=== PATIENT | female | born 1960 | race Caucasian/White ===

== ENCOUNTER 2021-01-15 21:29 | Emergency (ER) | payer MEDICARE, MEDICAID ==
--- NOTE | 2021-01-15 21:42 | ED Physician Documentation ---
PD HPI LOWER EXT INJURY - Stated complaint Stated Complaint: L LEG SWOLLEN - History obtained from History obtained from: Patient - History of Present Illness PD HPI LOW EXT INJURY LOCATION: Left, Lower leg, Foot, Toe Type of injury: No: Fall, Twist Where injury occurred: Home Timing - onset: How many days ago (she has had some pain and swelling in lower leg/foot/toes with pain in them with walking/activity for couple of months. Consistent pain and also discoloration of great/2nd toes and around the heel for 2 days. No noted injury.) Timing - duration: Days (2) Timing - details: Abrupt onset, Still present Worsened by: Moving, Palpating Associated symptoms: Weakness (for movement of left foot and toes for the past 2 days.), Numbness, Tingling, Swelling, Discolored (around heel, great toe and 2nd toe.) Similar symptoms before: Has not had sx before Recently seen: Not recently seen Review of Systems Constitutional: denies: Fever, Chills Nose: denies: Rhinorrhea / runny nose, Congestion Throat: denies: Sore throat Cardiac: denies: Chest pain / pressure, Palpitations Respiratory: denies: Dyspnea, Cough GI: denies: Nausea, Vomiting, Diarrhea : denies: Dysuria Skin: denies: Rash, Lesions Musculoskeletal: denies: Neck pain, Back pain Neurologic: reports: Focal weakness (left foot feels weak and hurts with ROM.), Numbness (left foot) PD PAST MEDICAL HISTORY - Past Medical History Cardiovascular: None Respiratory: None Neuro: None Endocrine/Autoimmune: Type 2 diabetes GI: None - Present Medications Home Medications: Ambulatory Orders Medication Instructions Recorded Confirmed Hypercholesterol 1 mg PO DAILY 01/15/21 Insulin 10 units SUBQ HS 01/15/21 Insulin` 40 units [id number] DAILY 01/15/21 metFORMIN [Glucophage] 1 mg PO DAILY 01/15/21 01/15/21 - Allergies Allergies/Adverse Reactions: Allergies Allergy/AdvReac Type Severity Reaction Status Date / Time No Known Drug Allergies Allergy Verified 01/15/21 21:57 PD ED PE NORMAL - Vitals Vital signs reviewed: Yes - General General: Alert and oriented X 3, Well developed/nourished, Other (appears in some discomfort due to foot pain. ) - Cardiac Cardiac: RRR, No murmur - Respiratory Respiratory: Clear bilaterally - Abdomen Abdomen: Soft, Non tender - Back Back: No CVA TTP - Derm Derm: Other (no palpable pulses in foot/ankle (US showed some faint flow at DP and post tib arteries).). No: Normal color (dusky color from ankle to toes, with purple/ischemic coloring of great toe, 2nd toe and around the MTP of great toe, and some of heel/posterior ankle. Some edema of foot. No warmth nor redness. ) - Neuro Neuro: Alert and oriented X 3, Normal speech, Other (right foot with normal color, movement and sensation. Left foot with weakness for dorsiflexion and p lantarflexion at ankle and for toes movement. Decreased sensation to touch/ pinprick at toes 1-3 and dorsum foot up to ankle area. Normal sensation lower leg. ) Eye Opening: Spontaneous Motor: Obeys Commands Verbal: Oriented GCS Score: 15 Results - Vitals Vitals: Vital Signs - 24 hr 01/15/21 01/16/21 01/16/21 21:40 00:01 01:59 Temperature 37.0 C Heart Rate 103 H 85 92 Respiratory 17 18 18 Rate Blood Pressure 176/89 H 190/88 H 186/72 H O2 Saturation 99 98 98 Oxygen O2 Source Room air - Labs Labs: Laboratory Tests 01/15/21 01/15/21 01/15/21 22:24 22:24 22:24 WBC 14.4 H RBC 3.46 L Hgb 10.3 L Hct 32.3 L MCV 93.4 MCH 29.8 MCHC 31.9 L RDW 12.3 Plt Count 474 H MPV 9.2 Neut # (Auto) 9.3 H Lymph # (Auto) 3.6 H [place] # (Auto) 1.4 H Eos # (Auto) 0.1 Baso # (Auto) 0.1 Absolute Nucleated RBC 0.00 Nucleated RBC % 0.0 Sodium 141 Potassium 3.8 Chloride 104 Carbon Dioxide 24 Anion Gap 13.0 BUN 9 Creatinine 0.7 Estimated GFR (MDRD) 86 L Glucose 123 H POC Whole Bld Glucose Lactic Acid 2.2 Calcium 9.4 Magnesium 1.9 Total Bilirubin 0.3 AST 26 ALT 24 Alkaline Phosphatase 158 H Total Creatine Kinase 450 H Total Protein 8.2 Albumin 3.6 Globulin 4.6 H Albumin/Globulin Ratio 0.8 L Lipase 23 Nasal Adenovirus (PCR) Nasal B. parapertussis DNA (PCR) Nasal Coronavir 229E PCR Nasal Coronavir HKU1 PCR Nasal Coronavir NL63 PCR Nasal Coronavir OC43 PCR Nasal Enterovir/Rhinovir PCR Nasal Influenza B PCR Nasal Influenza A PCR Nasal Parainfluen 1 PCR Nasal Parainfluen 2 PCR Nasal Parainfluen 3 PCR Nasal Parainfluen 4 PCR Nasal RSV (PCR) Nasal B.pertussis DNA PCR Nasal C.pneumoniae (PCR) Aidan Human Metapneumo PCR Nasal M.pneumoniae (PCR) Nasal SARS-CoV-2 (PCR) 01/15/21 01/16/21 23:53 02:09 WBC RBC Hgb Hct MCV MCH MCHC RDW Plt Count MPV Neut # (Auto) Lymph # (Auto) [place] # (Auto) Eos # (Auto) Baso # (Auto) Absolute Nucleated RBC Nucleated RBC % Sodium Potassium Chloride Carbon Dioxide Anion Gap BUN Creatinine Estimated GFR (MDRD) Glucose POC Whole Bld Glucose 84 Lactic Acid Calcium Magnesium Total Bilirubin AST ALT Alkaline Phosphatase Total Creatine Kinase Total Protein Albumin Globulin Albumin/Globulin Ratio Lipase Nasal Adenovirus (PCR) NOT DETECTED Nasal B. parapertussis DNA (PCR) NOT DETECTED Nasal Coronavir 229E PCR NOT DETECTED Nasal Coronavir HKU1 PCR NOT DETECTED Nasal Coronavir NL63 PCR NOT DETECTED Nasal Coronavir OC43 PCR NOT DETECTED Nasal Enterovir/Rhinovir PCR NOT DETECTED Nasal Influenza B PCR NOT DETECTED Nasal Influenza A PCR NOT DETECTED Nasal Parainfluen 1 PCR NOT DETECTED Nasal Parainfluen 2 PCR NOT DETECTED Nasal Parainfluen 3 PCR NOT DETECTED Nasal Parainfluen 4 PCR NOT DETECTED Nasal RSV (PCR) NOT DETECTED Nasal B.pertussis DNA PCR NOT DETECTED Nasal C.pneumoniae (PCR) NOT DETECTED Aidan Human Metapneumo PCR NOT DETECTED Nasal M.pneumoniae (PCR) NOT DETECTED Nasal SARS-CoV-2 (PCR) NOT DETECTED - Rads (name of study) duplex left leg arterial and venous Radiology: Prelim report reviewed (venous return is okay. Severe stenosis distal femoral artery with minimal small vessel monophasic flow to the foot. ), See rad report PD MEDICAL DECISION MAKING - ED course Complexity details: reviewed results, re-evaluated patient (It does sound like claudication with vascular insufficiency for couple of months but now a pronounced acute change in the last 2 days with weakness, decreased sensation, discoloration. Unclear if a abrupt embolic process on top chronic stenosis or if it just met critical tipping point for insuffici), considered differential (seems likely vascular arterial insufficiency. Will get U/S arterial and venous.), d/w patient, d/w data warehouse consultant (Dr. Moreira, Vascular, who felt evaluation of the patient is indicated and will see pt in consultation. Refers to Hospitalist. Talked with Dr. Remy, Hospitalist, who accepts transfer. ) ED course: Would be lead medic for EMS states he did not have a backup crew available for transfer of the patient and did not want to release one of the available EMS units for a transfer. [facility] was not able to send a vehicle until 8 AM. The patient will be maintained here in the ER with IV hydration and pain medicine if needed. There is still some minimal blood flow to the area so I do not feel (and the vascular surgeon did not feel) that this was emergent for a procedure so airlift is not appropriate. There will be however some several hour delay in transfer due to ambulance availability. Departure - Departure Disposition: 02 Transfer Acute Care Hosp
[2021-01-15] MEDS ORDERED: SODIUM CHLORIDE 0.9% 1,000 ML IV STA (21:50)
[2021-01-15] MEDS ORDERED: MORPHINE 2 MG/ML CARPUJECT IVP STA (22:28)
[2021-01-15 22:29] LABS: BASOPHILS # (AUTO) 0.1 10^3/uL (0.0-0.1); BASOPHILS % (AUTO) 0.3 %; EOSINOPHILS # (AUTO) 0.1 10^3/uL (0.0-0.7); EOSINOPHILS % (AUTO) 0.7 %; HCT - HEMATOCRIT 32.3 % (37.0-47.0); HGB - HEMOGLOBIN 10.3 g/dL (12.0-16.0); LYMPHOCYTES # (AUTO) 3.6 10^3/uL (1.5-3.5); LYMPHOCYTES % (AUTO) 24.8 %; MEAN CORPUSCULAR HEMOGLOBIN 29.8 pg (27.0-31.0); MEAN CORPUSCULAR HGB CONC 31.9 g/dL (32.0-36.0); MEAN CORPUSCULAR VOLUME 93.4 fL (81.0-99.0); MEAN PLATELET VOLUME 9.2 fL (7.9-10.8); MONOCYTES # (AUTO) 1.4 10^3/uL (0.0-1.0); MONOCYTES % (AUTO) 9.4 %; NEUTROPHILS # (AUTO) 9.3 10^3/uL (1.5-6.6); NEUTROPHILS % (AUTO) 64.4 %; PLT - PLATELET COUNT 474 10^3/uL (130-450); RED BLOOD COUNT 3.46 10^6/uL (4.20-5.40); RED CELL DISTRIBUTION WIDTH 12.3 % (12.0-15.0); WHITE BLOOD COUNT 14.4 x10^3/uL (4.8-10.8)
[2021-01-15 22:43] LABS: ALBUMIN 3.6 g/dL (3.2-5.5); BILIRUBIN,TOTAL 0.3 mg/dL (0.2-1.0); CALCIUM 9.4 mg/dL (8.5-10.3); CREATININE 0.7 mg/dL (0.4-1.0); MAGNESIUM 1.9 mg/dL (1.7-2.8); POTASSIUM 3.8 mmol/L (3.5-5.0)
[2021-01-15 22:53] LABS: ALBUMIN/GLOBULIN RATIO 0.8 (1.0-2.2); TOTAL PROTEIN 8.2 g/dL (6.7-8.2)
[2021-01-15] MEDS ORDERED: ENOXAPARIN 60 MG/0.6 ML SYRINGE SUBQ STA (23:51)
[2021-01-16] MEDS ORDERED: SODIUM CHLORIDE 0.9% 1,000 ML IV STA (00:36)
[2021-01-16 01:09] LABS: B. PARAPERTUSSIS- RESP PCR PAN NOT DETECTED; B. PERTUSSIS- RESP PCR PANEL NOT DETECTED; C. PNEUMONIAE- RESP PCR PANEL NOT DETECTED; CORONAVIRUS 229E-RESP PCR NOT DETECTED; CORONAVIRUS HKU1-RESP PCR NOT DETECTED; CORONAVIRUS NL63-RESP PCR NOT DETECTED; CORONAVIRUS OC43-RESP PCR NOT DETECTED; HUMAN METAPNEUMOVIRUS NOT DETECTED; INFLUENZA A- RESP PCR PANEL NOT DETECTED; INFLUENZA B - RESP PCR PANEL NOT DETECTED; M. PNEUMONIAE- RESP PCR PANEL NOT DETECTED; PARAINFLUENZA VIRUS 1 NOT DETECTED; PARAINFLUENZA VIRUS 2 NOT DETECTED; PARAINFLUENZA VIRUS 3 NOT DETECTED; PARAINFLUENZA VIRUS 4 NOT DETECTED; RHINOVIRUS/ENTEROVIRUS NOT DETECTED; RSV- RESP PCR PANEL NOT DETECTED; SARS-CoV-2 -RESP PCR PANEL NOT DETECTED
[2021-01-16] MEDS ORDERED: KETOROLAC 30 MG/ML VIAL IVP STA (02:19)
[2021-01-16] MEDS ORDERED: HYDROmorphone 1 MG/ML CARPUJECT IVP STA (04:26)
[2021-01-16] MEDS ORDERED: ONDANSETRON 4 MG/2 ML VIAL IVP STA (04:56)
[2021-01-16] MEDS ORDERED: DROPERIDOL 5 MG/2 ML VIAL IVP STA (06:31)
[2021-01-16 08:17] VITALS: BP 160/87
[2021-01-16 08:25] LABS: ESTIMATED AVERAGE GLUCOSE 217 mg/dL (70-100); HEMOGLOBIN A1c% 9.2 % (4.27-6.07)
--- NOTE | 2021-01-16 08:46 | Ultrasound Report ---
PROCEDURE: Duplex Ext Veins Left INDICATIONS: 2 days left foot/leg pain/dusky TECHNIQUE: Real-time imaging, as well as color and pulse Doppler interrogation, were performed of the lower extr emity deep veins from the inguinal ligament to the popliteal fossa. COMPARISON: None. FINDINGS: Suboptimal evaluation secondary to posterior acoustic shadowing from atherosclerotic plaque . The deep veins are normally compressible, and free of intraluminal thrombus. Color and pulse Doppl er demonstrate normal phasic intraluminal flow. There is normal augmentation response to distal comp ression maneuver. Sonographically benign-appearing lymph nodes incidentally noted in the left inguin al region. IMPRESSION: No evidence of deep venous thrombosis. Findings are concordant with the preliminary stud y interpretation provided at the time of the study. Reviewed by: Vasiliy Blas MD on 01/16/2021 8:44 AM PST Approved by: Vasiliy Blas MD on 01/16/2021 8:44 AM PST Station ID: [id number]
--- NOTE | 2021-01-16 08:54 | Ultrasound Report ---
PROCEDURE: Duplex Lwr Ext Arterial LT INDICATIONS: 2 days left lower ext dusky/pain TECHNIQUE: Color and pulse Doppler interrogation was performed of the left lower extremity arterial system, with image documentation. COMPARISON: None. FINDINGS: Common femoral artery: 112 cm/sec, with triphasic flow. Deep femoral artery: 114 cm/sec, with biphasic flow. Proximal superficial femoral artery: 71 cm/sec, with triphasic flow. Mid superficial femoral artery: 50 cm/sec, with triphasic flow. Distal superficial femoral artery: 212 cm/sec, with monophasic flow. Popliteal artery: 15 cm/sec, with monophasic flow. Posterior tibial artery: 13 cm/sec, with monophasic flow. Anterior tibial artery/dorsalis pedis: 17 and 49 cm/sec, with monophasic and monophasic flow, respec tively. Manzo-scale imaging description: There are diffuse atherosclerotic plaque IMPRESSION: Diffuse left lower extremity arterial calcified plaque. Findings suggest greater than 50% focal steno sis involving the distal left superficial femoral artery. No occlusion seen. Findings are concordant with the preliminary study interpretation provided at the time of the study. Reviewed by: Vasiliy Blas MD on 01/16/2021 8:52 AM PST Approved by: Vasiliy Blas MD on 01/16/2021 8:52 AM PST Station ID: [id number]
== END 2021-01-16 09:30 | disposition short-term general hospital (02) ==
LOC: ED 21:29
DX: E11.51 Type 2 diabetes mellitus with diabetic peripheral angiopathy without gangrene (principal); I70.222 Atherosclerosis of native arteries of extremities with rest pain, left leg; Z79.4 Long term (current) use of insulin; Z20.822 Contact with and (suspected) exposure to COVID-19
CPT/HCPCS: 80053; 82550; 83036; 83605; 83690; 83735; 85025; 87631; 93005; 93926; 93971; 96361; 96372; 96374; 96375; 99284; 99285; J1170; J1650; 0202U